=== PATIENT | male | born 1970 | race Caucasian/White ===

== ENCOUNTER → 2018-02-15 | Outpatient (CLI) | payer OTHER ==
[~2018-02-15] MED LIST: ADV1DS; ADV1DS1 INH; ALB6.8IN; ALBU0.8322 INH; AML5T; ASP81CT PO; ATR20T; CPR500T; GABA-486 PO; HYDROCHLOROTHIAZIDE; INSU100I5 SQ; KETEK; LISI1TAB8 PO; LISINOPRIL; METF500T5 PO; PIOG15TA67 PO; PIOG1TAB6; RT-ALBUINH IH; glucovance
[2018-02-15 12:15] LABS: BASOPHILS % (AUTO) 0 % (0-10); EOSINOPHILS # (AUTO) 0.3 10^3/uL (0.0-0.3); EOSINOPHILS % (AUTO) 3 % (0-10); HEMATOCRIT 45 % (40-54); HEMOGLOBIN 14.8 G/DL (13.3-17.7); LYMPHOCYTES # (AUTO) 1.8 X 10^3 (1.0-4.0); LYMPHOCYTES % (AUTO) 17 % (12-44); MEAN CORPUSCULAR HEMOGLOBIN 29 PG (25-34); MEAN CORPUSCULAR HGB CONC 33 G/DL (32-36); MEAN CORPUSCULAR VOLUME 88 FL (80-99); MEAN PLATELET VOLUME 12.3 FL (7.4-10.4); MONOCYTES # (AUTO) 0.6 X 10^3 (0.0-1.0); MONOCYTES % (AUTO) 6 % (0-12); NEUTROPHILS # (AUTO) 7.9 X 10^3 (1.8-7.8); NEUTROPHILS % (AUTO) 75 % (42-75); PLATELET COUNT 180 10^3/uL (130-400); RED BLOOD COUNT 5.09 10^6/uL (4.35-5.85); RED CELL DISTRIBUTION WIDTH 13.9 % (10.0-14.5); WHITE BLOOD COUNT 10.6 10^3/uL (4.3-11.0)
[2018-02-15 12:41] LABS: ALANINE AMINOTRANSFERASE 22 U/L (0-55); ALBUMIN 4.3 GM/DL (3.2-4.5); ALKALINE PHOSPHATASE 77 U/L (40-136); BILIRUBIN,TOTAL 0.5 MG/DL (0.1-1.0); BUN/CREATININE RATIO 23; CALCIUM 9.6 MG/DL (8.5-10.1); CARBON DIOXIDE 27 MMOL/L (21-32); CHLORIDE 100 MMOL/L (98-107); CREATININE SERUM 1.11 MG/DL (0.60-1.30); GFR ESTIMATED > 60; GLUCOSE 253 MG/DL (70-105); POTASSIUM 4.2 MMOL/L (3.6-5.0); SODIUM 137 MMOL/L (135-145); TOTAL PROTEIN 8.6 GM/DL (6.4-8.2)
== END ==
LOC: LAB 12:01
PROVIDERS: ATTEND Family Medicine
DX: R07.2 Precordial pain (principal)
CPT/HCPCS: 36415; 80053; 84484; 85025

== ENCOUNTER → 2019-04-25 | Outpatient (CLI) | payer SELFPAY ==
[~2019-04-25] MED LIST changes: +METF-397 PO; -METF500T5 PO
[2019-04-25 15:32] LABS: CREATININE SERUM 1.4 MG/DL (0.60-1.30)
== END ==
LOC: RAD 14:41
PROVIDERS: ATTEND Family Medicine
DX: H47.293 Other optic atrophy, bilateral (principal)
CPT/HCPCS: 36415; 82565; 84520

== ENCOUNTER 2020-08-19 15:29 | Emergency (ER) | payer SELFPAY ==
[~2020-08-19] VITALS: Ht 175 cm; Wt 111.0 kg
[~2020-08-19 15:29] MED LIST changes: +LISI1TAB46 PO; -LISI1TAB8 PO
[2020-08-19] MEDS ORDERED: LACTATED RINGERS 1,000 ML IV STA (15:47)
[2020-08-19] MEDS ORDERED: PEN G BENZ (BICILLIN LA) 1.2 M UN/2 ML SYR IM STA (15:47)
--- NOTE | 2020-08-19 15:47 | ED Cough/URI ---
General Chief Complaint: Respiratory Problems Stated Complaint: COVID + BODYACHES SOA History of Present Illness Date Seen by Provider: Aug 19, 2020 Time Seen by Provider: 15:47 Initial Comments 50-year-old male sent over by his primary care office for further evaluation. Patient was seen in the clinic today and tested positive for Covid, influenza B and strep. Patient has mild shortness of air. Reports they were concerned about his oxygen being low. Upon arrival patient's oxygen is in the upper 90s. He reports is never greater than 95% however 96 to 97% here when he arrived and was triaged. Patient has some generalized body aches. Reports that his symptoms started yesterday. Patient was not given any antibiotic or antiviral prior to being sent to the ER. He has no other systemic complaints. Allergies and Home Medications Allergies Coded Allergies: No Known Allergies (Verified Allergy, Unknown, 09/03/06) Home Medications Albuterol Sulfate 2.5 Mg/3 Ml Solution, 3 ML INH Q6H PRN for SHORTNESS OF BREATH, (Reported) Albuterol Sulfate 6.7 Gm Hfa.aer.ad, 2 PUFF IH Q4H PRN for WHEEZING, (Reported) Aspirin 81 Mg Tablet, 81 MG PO HS, (Reported) Gabapentin 100 Mg Capsule, 100 MG PO TID, (Reported) Insulin Determir 300 Units/3 Ml Soln, 20 UNITS SQ HS, (Reported) Lisinopril/Hydrochlorothiazide 1 Each Tablet, 1 EACH PO HS, (Reported) Metformin HCl 500 Mg Tablet, 500 MG PO HS, (Reported) Oseltamivir Phosphate 75 Mg Cap, 75 MG PO BID Prescribed by: HENRIQUE PURVIS on 08/19/20 1625 Pioglitazone HCl 15 Mg Tablet, 15 MG PO HS, (Reported) Salmeterol Xinaf/Fluticasone 1 Diskus Inhp, 1 PUFF INH BID, (Reported) Patient Home Medication List Home Medication List Reviewed: Yes Review of Systems Review of Systems Constitutional: No chills; malaise EENTM: throat pain Respiratory: cough, short of breath; No wheezing Cardiovascular: No chest pain Gastrointestinal: No abdominal pain, No diarrhea, No nausea, No vomiting Genitourinary: no symptoms reported Musculoskeletal: other (Generalized body aches) Skin: no symptoms reported Psychiatric/Neurological: No Symptoms Reported Hematologic/Lymphatic: No Symptoms Reported Past Pohalsb-Akfjwg-Jwgpht Hx Past Med/Social Hx: Reviewed Nursing Past Med/Soc Hx Patient Social History Alcohol Use: Denies Use Smoking Status: Never a Smoker Recent Hopitalizations: No Immunizations Up To Date Tetanus Booster (TDap): Unknown Date of Pneumonia Vaccine: May 19, 2014 Seasonal Allergies Seasonal Allergies: No Past Medical History Surgeries: No Respiratory: Yes Asthma Currently Using CPAP: No Currently Using BIPAP: No Cardiac: Yes Hypertension Neurological: No Seizure Disorder Reproductive Disorders: No Sexually Transmitted Disease: No HIV/AIDS: No Gastrointestinal: No Musculoskeletal: No Arthritis Endocrine: Yes Diabetes, Insulin dep Hearing Impairment: Denies Cancer: No Psychosocial: No Integumentary: No Blood Disorders: No Physical Exam Vital Signs - First Documented 08/19/20 15:44 Temp 36.8 Pulse 106 Resp 18 B/P (MAP) 134/74 (94) Pulse Ox 99 Capillary Refill : Height: 5'9.00" Weight: 288lbs. 0.0oz. 130.016152ho; 42.5 BMI Method: General Appearance: no apparent distress Progress/Results/Core Measures Suspected Sepsis SIRS Temperature: Pulse: Respiratory Rate: Laboratory Tests 08/19/20 15:56: White Blood Count 6.2 Blood Pressure / Mean: Laboratory Tests 08/19/20 15:56: Creatinine 1.49H, Platelet Count 134, Total Bilirubin 0.6 Results/Orders Lab Results Laboratory Tests Test 08/19/20 15:56 Range/Units White Blood Count 6.2 4.3-11.0 10^3/uL Red Blood Count 4.98 4.30-5.52 10^6/uL Hemoglobin 13.9 13.3-17.7 g/dL Hematocrit 45 40-54 % Mean Corpuscular Volume 90 80-99 fL Mean Corpuscular Hemoglobin 28 25-34 pg Mean Corpuscular Hemoglobin Concent 31 L 32-36 g/dL Red Cell Distribution Width 14.2 10.0-14.5 % Platelet Count 134 130-400 10^3/uL Mean Platelet Volume 12.5 H 9.0-12.2 fL Immature Granulocyte % (Auto) 1 % Neutrophils (%) (Auto) 79 H 42-75 % Lymphocytes (%) (Auto) 14 12-44 % Monocytes (%) (Auto) 6 0-12 % Eosinophils (%) (Auto) 0 0-10 % Basophils (%) (Auto) 0 0-10 % Neutrophils # (Auto) 4.9 1.8-7.8 10^3/uL Lymphocytes # (Auto) 0.8 L 1.0-4.0 10^3/uL Monocytes # (Auto) 0.4 0.0-1.0 10^3/uL Eosinophils # (Auto) 0.0 0.0-0.3 10^3/uL Basophils # (Auto) 0.0 0.0-0.1 10^3/uL Immature Granulocyte # (Auto) 0.0 0.0-0.1 10^3/uL Sodium Level 134 L 135-145 MMOL/L Potassium Level 4.3 3.6-5.0 MMOL/L Chloride Level 97 L 98-107 MMOL/L Carbon Dioxide Level 25 21-32 MMOL/L Anion Gap 12 5-14 MMOL/L Blood Urea Nitrogen 23 H 7-18 MG/DL Creatinine 1.49 H 0.60-1.30 MG/DL Estimat Glomerular Filtration Rate 50 BUN/Creatinine Ratio 15 Glucose Level 229 H 70-105 MG/DL Calcium Level 8.4 L 8.5-10.1 MG/DL Corrected Calcium 8.3 L 8.5-10.1 MG/DL Total Bilirubin 0.6 0.1-1.0 MG/DL Aspartate Amino Transf (AST/SGOT) 26 5-34 U/L Alanine Aminotransferase (ALT/SGPT) 27 0-55 U/L Alkaline Phosphatase 76 40-136 U/L C-Reactive Protein High Sensitivity 7.90 H 0.00-0.50 MG/DL Total Protein 7.2 6.4-8.2 GM/DL Albumin 4.1 3.2-4.5 GM/DL My Orders Orders - PURVIS,HENRIQUE L DO Penicillin G Benzathine Inject (Bicillin (08/19/20 15:47) Chest 1 View, Ap/Pa Only (08/19/20 15:47) Dexamethasone Injection (Decadron Inje (08/19/20 16:00) Lactated Ringers (Lr 1000 Ml Iv Solution (08/19/20 15:47) Ed Iv/Invasive Line Start (08/19/20 15:47) Cbc With Automated Diff (08/19/20 15:47) Comprehensive Metabolic Panel (08/19/20 15:47) Hs C Reactive Protein (1/25/21 15:47) Medications Given in ED Current Medications Medications Dose Ordered Sig/Julien Route Start Time Stop Time Status Last Admin Dose Admin Dexamethasone Sodium Phosphate 10 mg ONCE ONCE IV 08/19/20 16:00 08/19/20 16:01 DC 08/19/20 16:02 10 MG Vital Signs/I&O 08/19/20 15:44 Temp 36.8 Pulse 106 Resp 18 B/P (MAP) 134/74 (94) Pulse Ox 99 Capillary Refill : Diagnostic Imaging Diagonstic Imaging: Xray Plain Films/CT/US/NM/MRI: chest Comments [facility], [facility]. [place], [place] NAME: SHASHANK HIGGINS [facility] REC#: [id number] PT STATUS: REG ER : 1970 PHYSICIAN: HENRIQUE PURVIS DO ADMIT DATE: 08/19/20/ER Signed Date of Exam:08/19/20 CHEST 1 VIEW, AP/PA ONLY Indication: Lower respiratory infection Portable chest 4:42 PM Heart size and pulmonary vascularity are normal. Lungs are clear. There are no effusions or pneumothoraces. IMPRESSION: Negative chest Dictated by: Dictated on workstation # [id number] Dict: 08/19/20 165 Trans: 08/19/20 165 TB [id number] Interpreted by: KRISTOFER PEÑA MD Electronically signed by: KRISTOFER PEÑA MD 08/19/20 165 Reviewed: Reviewed by Me, Reviewed/Discussed Departure Impression Primary Impression: COVID-19 Additional Impressions: Influenza B Strep pharyngitis Disposition: HOME, SELF-CARE Condition: Stable Departure-Patient Inst. Referrals: TREVIN ROCA MD (PCP/Family) Primary Care Physician Patient Instructions: Strep Throat (DC), Coronavirus Disease 2019 (COVID-19) Overview, Flu, Adult (DC) Add. Discharge Instructions: return to the ER as needed, Follow up with your pcp as needed. There is an significantly vocalic for people All discharge instructions reviewed with patient and/or family. Voiced understanding. Scripts Ondansetron (Ondansetron Odt) 4 Mg Tab.rapdis 4 MG PO Q6H PRN for NAUSEA/VOMITING, #20 TAB 0 Refills Prov: HENRIQUE PURVIS DO 08/19/20 Oseltamivir Phosphate (Tamiflu) 75 Mg Cap 75 MG PO BID, #10 CAP Prov: HENRIQUE PURVIS DO 08/19/20 HENRIQUE PURVIS DO Aug 19, 2020 15:47
[2020-08-19 16:03] LABS: BASOPHILS % (AUTO) 0 % (0-10); EOSINOPHILS % (AUTO) 0 % (0-10); HEMATOCRIT 45 % (40-54); HEMOGLOBIN 13.9 g/dL (13.3-17.7); LYMPHOCYTES # (AUTO) 0.8 10^3/uL (1.0-4.0); LYMPHOCYTES % (AUTO) 14 % (12-44); MEAN CORPUSCULAR HEMOGLOBIN 28 pg (25-34); MEAN CORPUSCULAR HGB CONC 31 g/dL (32-36); MEAN CORPUSCULAR VOLUME 90 fL (80-99); MEAN PLATELET VOLUME 12.5 fL (9.0-12.2); MONOCYTES # (AUTO) 0.4 10^3/uL (0.0-1.0); MONOCYTES % (AUTO) 6 % (0-12); NEUTROPHILS # (AUTO) 4.9 10^3/uL (1.8-7.8); NEUTROPHILS % (AUTO) 79 % (42-75); PLATELET COUNT 134 10^3/uL (130-400); WHITE BLOOD COUNT 6.2 10^3/uL (4.3-11.0)
[2020-08-19 16:14] LABS: ALBUMIN 4.1 GM/DL (3.2-4.5)
[2020-08-19 16:15] LABS: POTASSIUM 4.3 MMOL/L (3.6-5.0)
[2020-08-19 16:16] LABS: CALCIUM 8.4 MG/DL (8.5-10.1)
[2020-08-19 16:17] LABS: TOTAL PROTEIN 7.2 GM/DL (6.4-8.2)
[2020-08-19 16:19] LABS: BILIRUBIN,TOTAL 0.6 MG/DL (0.1-1.0)
[2020-08-19 16:21] LABS: CREATININE SERUM 1.49 MG/DL (0.60-1.30)
[2020-08-19] MEDS ORDERED: OSLT75C PO (16:25)
--- NOTE | 2020-08-19 16:52 | Diagnostic Imaging Report ---
Indication: Lower respiratory infection Portable chest 4:42 PM Heart size and pulmonary vascularity are normal. Lungs are clear. There are no effusions or pneumothoraces. IMPRESSION: Negative chest Dictated by: Dictated on workstation # [id number]
[2020-08-19] MEDS ORDERED: ONDA4TAB11 PO (17:12)
[2020-08-19 17:25] VITALS: BP 123/50
== END 2020-08-19 17:25 | disposition home or self-care (01) ==
LOC: EDUNIT# 15:29 → ER 15:32
DX: U07.1 COVID-19 (principal); J02.0 Streptococcal pharyngitis; I10 Essential (primary) hypertension; G40.909 Epilepsy, unspecified, not intractable, without status epilepticus; E11.9 Type 2 diabetes mellitus without complications; Z79.4 Long term (current) use of insulin; Z79.82 Long term (current) use of aspirin
CPT/HCPCS: 36415; 71045; 80053; 85025; 86141

== ENCOUNTER → 2020-08-23 | Outpatient (CLI) | payer SELFPAY ==
[~2020-08-23] MED LIST changes: +BAMLANIVIMAB (NON FORM) 700 MG in NS (IVPB) 250 ML IV ONE; +EPINEPHrine INJECTION 1 MG/ML AMP IM PRN; +ONDA4TAB11 PO; +OSLT75C PO; +diphenhydrAMINE 50 MG/ML INJ (BENADRYL) IV PRN
[2020-08-23 08:58] VITALS: BP 102/76
[2020-08-23 09:58] VITALS: BP 115/75
== END ==
LOC: INFUSION 08:28
PROVIDERS: ATTEND Family Medicine
DX: U07.1 COVID-19 (principal)